=== PATIENT | male | born 2000 | race Caucasian/White ===

== ENCOUNTER 2025-01-02 17:34 | Emergency (ER) | payer OTHER ==
[2025-01-02] MEDS ORDERED: LACTATED RINGER'S 1,000 ML IV ONE (18:00)
[2025-01-02] MEDS ORDERED: HYDROmorphone HCL 1 MG/ML SYR IV PRN (18:00)
[2025-01-02 18:02] LABS: BASOPHILS 0.7 % (0-2); EOSINOPHILS 0.2 % (0-6); HEMATOCRIT 43.3 % (35.0-50.0); HEMOGLOBIN 15.7 g/dL (12.0-18.0); LYMPHOCYTES 14.6 % (24-44); MCH 27.7 (27-36); MCHC 36.3 g/dl (30-36); MCV 76.4 fl (81-99); MONOCYTES 7.2 % (0-12); NEUTROPHILS 77.3 % (39-80); PLATELET COUNT 318 K/uL (140-440); RBC 5.68 M/ul (4.3-5.7); RDW 13.3 (10.5-15.0)
[2025-01-02 18:11] LABS: ALBUMIN 4.7 g/dL (3.4-5.0); ALBUMIN/GLOBULIN RATIO 1.47 (1.1-2.4); BILIRUBIN, TOTAL 1.1 mg/dL (0.2-1.0); BUN/CREATININE RATIO 8.69 (6.0-28.6); CALCIUM 8.9 mg/dL (8.5-10.1); CREATININE, SERUM 1.15 mg/dL (0.70-1.30); PROTEIN, TOTAL 7.9 g/dL (6.4-8.2)
[2025-01-02 18:59] LABS: ABO A; ANTIBODY SCREEN NEGATIVE; RH NEGATIVE
[2025-01-02] MEDS ORDERED: HYDROCODONE BIT/ACETAMINOPHEN 5/325 MG 1 TAB HOME.PACK PO ONE (19:45)
[2025-01-02 19:53] VITALS: BP 142/57
== END 2025-01-02 19:51 | disposition home or self-care (01) ==
LOC: ED 17:34
PROVIDERS: Emergency Medicine
DX: T14.8XXA Other injury of unspecified body region, initial encounter (principal); V69.50XA Passenger in heavy transport vehicle injured in collision with unspecified motor vehicles in traffic accident, initial encounter; Z88.0 Allergy status to penicillin
CPT/HCPCS: 36415; 70450; 71260; 72125; 74177; 80053; 85025; 86850; 86900; 86901; 99284-25; A9270; G0480; J1171; J7121; Q9967